=== PATIENT | female | born 1985 | race Caucasian/White ===

== ENCOUNTER 2021-04-23 10:07 | Inpatient (IN) | payer BC ==
[~2021-04-23] VITALS: Ht 167.6 cm; Wt 89.1 kg
[2021-04-23] VITALS (13 sets, daily range): BP systolic 128–146; BP diastolic 67–93; PULSE 56–107; TEMP 98–98.5
[~2021-04-23 10:07] MED LIST: AMOXICILLIN 8751 TAB PO; CLARITIN 1010 MG/TAB PO; MOTRIN 600600 MG/TAB PO; PERCOCET 325 MG1 TA2 PO; PRENATAL FORMU1 EAC3 PO; PRENATAL1 TA4 PO; ZANTAC 7575 MG PO
--- NOTE | 2021-04-23 10:15 | NUR ---
1015: PT AMBULATORY TO UNIT FOR REPEAT SCHEDULED CSECTION. DENIES LEAKING OF FLUIDS, REPORTS POSITIVE MOVEMENT, AND STATES SHE HAS BEEN HAVING IRREGULAR CONTRACTIONS FOR "A FEW DAYS NOW." PLACED ON EFM/TOCO, CATEGORY 1 STRIP WITH ACCELERATIONS AND MODERATE VARIABILITY. IV PLACED TO RIGHT WRIST WITH LR INFUSING. CONSENTS SIGNED. PT DENIES FURTHER QUESTIONS OR CONCERNS AT THIS TIME. 1150: PT AMBULATORY TO OR [address]: VIABLE MALE BORN VIA CSECTION PER , CARE OF INFANT ASSUMED BY LESLIE GILLESPIE. 1250: PT TO PACU IN STABLE CONDITION. DRESSING TO ABD CDI. LOCHIA SMALL WITH NO CLOTS. NICOLAS REMAINS PATENT AND DRAINING CLEAR YELLOW URINE. SCDS ON BLE. VITAL SIGNS STABLE. PT FULLY ALERT AND ORIENTED. DENIES NAUSEA. WILL CONTINUE WITH PACU RECOVERY PER PROTOCOL.
[2021-04-23] MEDS ORDERED: FLONASEALLERGY NS (10:48)
[2021-04-23] MEDS ORDERED: ZOLOFT 25MG25 MG PO (10:48)
[2021-04-23] MEDS ORDERED: PRENATAL (10:49)
[2021-04-23 11:10] LABS: BASO % 0.3 % (0.0-2.0); EOS # 0.1 K/mm3 (0.0-0.7); EOS % 1.3 % (0-4.0); GRAN # 5.9 K/mm3 (1.4-6.5); GRAN % 65.5 % (42.2-75.2); HEMOGLOBIN 11.6 g/dl (12.5-16.0); LYMPH % 22.4 % (20.0-51.0); MEAN CELL VOLUME 83 fl (80.0-100.0); MEAN CORPUSCULAR HEMOGLOBIN 29 pg (27.0-31.0); MEAN CORPUSCULAR HGB CONC 34 g/dl (33.0-37.0); MEAN PLATELET VOLUME 12.4 fl (7.4-10.4); MONO # 0.9 K/mm3 (0.1-0.6); MONO % 10.2 % (1.7-9.3); PLATELET COUNT 138 K/mm3 (130-400); RED BLOOD COUNT 4.07 M/mm3 (4.10-5.30); REDCELL DISTRIBUTION WIDTH-CV 15.9 % (11.5-14.5)
[2021-04-23 11:13] LABS: HEMATOCRIT 33.9 % (37.0-47.0)
--- NOTE | 2021-04-23 17:00 | NUR ---
PT REPORTS FULL SENSATION TO BLE. 800 ML CLEAR YELLOW URINE DRAINED FROM NICOLAS. NICOLAS DC'D. PT ABLE TO RISE AND STAND AND DENIES FEELING WEAKNESS UPON STANDING. AMBULATORY TO RESTROOM AT THIS TIME. LOCHIA SCANT. FUNDUS REMAINS FIRM AT UMBILICUS. NO CLOTS PRESENT THROUGHOUT RECOVERY. DENYS CARE PROVIDED. PT PLACED IN ABDOMINAL BINDER AND CLEAN GOWN. DRESSING TO ABDOMEN REMAINS CDI. PO PAIN CONTROL ADMINISTERED PT REPORTS BEGINNING TO FEEL "A LITTLE BIT UNCOMFORTABLE." DENIES FURTHER QUESTIONS OR CONCERNS AT THIS TIME. ASSISTED BACK INTO BED WITH CALL LIGHT WITHIN REACH.
[2021-04-24] VITALS: BP 133/69; PULSE 63; TEMP 98.4
[2021-04-24 04:45] VITALS: BP 118/70; PULSE 60; TEMP 97.6
[2021-04-24 07:30] VITALS: BP 140/72; PULSE 72; TEMP 97.6
--- NOTE | 2021-04-24 07:30 | NUR ---
Rests in bed, alert. Denies any needs at this time.
[2021-04-24] MEDS ORDERED: MOTRIN 800800 MG/TAB PO (08:40)
[2021-04-24] MEDS ORDERED: PERCOCET 325 MG1 TA2 PO (08:40)
--- NOTE | 2021-04-24 11:25 | NUR ---
Request percocet. Percocet 5/325 mg one given as ordered.
== END 2021-04-24 14:40 | disposition home or self-care (01) | DRG 787 ==
LOC: OB 10:07
PROVIDERS: ADMIT Obstetrics & Gynecology
PROC: 10D00Z1 Extraction of Products of Conception, Low, Open Approach (ICD-10-PCS; principal; 2021-04-23)
DX: O34.211 Maternal care for low transverse scar from previous cesarean delivery (principal); O10.02 Pre-existing essential hypertension complicating childbirth; Z3A.39 39 weeks gestation of pregnancy; Z37.0 Single live birth
CPT/HCPCS: J0171; J0690; J1885; J2175; J2370; J2405; J2590; J7120